=== PATIENT | female | born 1985 ===

== ENCOUNTER → 2019-03-20 | Outpatient (CLI) | payer OTHER ==
--- NOTE | 2019-03-21 17:00 | RADIOLOGY IMAGING REPORT ---
FACILITY: [facility] PATIENT NAME: FARHAN ALEXANDRA : [id number] MR: [id number] V: [id number] EXAM DATE: [id number] ORDERING PHYSICIAN: BETHANY LIU TECHNOLOGIST: Leela Singh RDMS(ABD,OBGYN,BR),RVT PROCEDURE:US RIGHT BREAST COMPLETE COMPARISON:None. INDICATIONS:Lump at 3 o'clock position of the Right breast, 3cm from nipple, 1.5-2cm in size. AREA SCANNED: Entire Right breast. FINDINGS: In the 3 o'clock position of the Right breast there is a 1.4 x 1.4 x 0.6cm ovoid circumscribed mildly lobular hypoechoic mass with faint acoustic enhancement. There is no acoustic shadowing. The mass is wider than tall. This would account for patient's palpable findings. In the 7 o'clock position of the Right breast there is a small cyst. In the 9 o'clock position of the Right breast there is a 7 x 3 x 7mm ovoid hypoechoic nodule that appears well circumscribed. There is no acoustic shadowing. The nodule is wider than tall. In the 11 o'clock position of the Right breast there is a small cluster of cysts. DIAGNOSTIC CATEGORY 3--PROBABLY BENIGN FINDING. RECOMMENDATIONS: SIX MONTH FOLLOW-UP ULTRASOUND: RIGHT BREAST. IMPRESSION: BIRADS 3: Probably benign finding. In the location of patient's palpable abnormality, in the 3 o'clock position there is a well circumscribed slightly lobular hypoechoic mass measuring 1.4 x 1.4 x 0.6cm likely representing a fibroadenoma. There is an additional well circumscribed hypoechoic mass in the 9 o'clock position of the Right breast measuring 7 x 7 x 3mm. This also likely represents a fibroadenoma however due to the solid nature a 6 month follow-up Right breast Ultrasound is recommended unless clinical findings warrant more immediate attention. Dictated by: Carmen Piper M.D. on 03/20/2019 at 16:56 Transcribed by: FLAQUITO on 03/21/2019 at 10:16 Approved by: Carmen Piper M.D. on 03/21/2019 at 16:57 [facility]
== END ==
LOC: US 00:43
PROVIDERS: ATTEND Student in an Organized Health Care Education/Training Program
DX: N63.10 Unspecified lump in the right breast, unspecified quadrant (principal)